=== PATIENT | male | born 1965 | race Caucasian/White ===

== ENCOUNTER 2017-01-15 09:29 | Emergency (ER) | payer OTHER ==
[~2017-01-15 09:29] MED LIST: NKHM
[2017-01-15] MEDS ORDERED: TOBREX OPHTH S2.5 ML OPH (09:42)
== END 2017-01-15 09:58 | disposition home or self-care (01) ==
LOC: ED 09:29
DX: S05.02XA Injury of conjunctiva and corneal abrasion without foreign body, left eye, initial encounter (principal); R03.0 Elevated blood-pressure reading, without diagnosis of hypertension; Z29.12 Encounter for prophylactic antivenin; F17.200 Nicotine dependence, unspecified, uncomplicated; X58.XXXA Exposure to other specified factors, initial encounter; Y93.89 Activity, other specified; Y92.69 Other specified industrial and construction area as the place of occurrence of the external cause; Y99.0 Civilian activity done for income or pay

== ENCOUNTER → 2023-11-04 | Outpatient (CLI) | payer OTHER ==
[~2023-11-04] MED LIST changes: +HYDROCHLOROTH12.5 M2 PO; +HYDROCODONE-AC1 EAC1 PO; +TOBREX OPHTH S2.5 ML OPH; +VENLAFAXINE H37.5 M5 PO; +VENLAFAXINE HYD75 M3 PO
[2023-11-04 17:58] LABS: BASO % 0.3 % (0.0-1.0); EOS % 0.7 % (1.0-4.0); LYMPH % 33.9 % (27.0-41.0); MEAN CELL VOLUME 96.4 fl (80.0-94.0); MEAN CORPUSCULAR HGB 31.7 pg (27.0-31.0); MEAN CORPUSCULAR HGB CONC 32.9 g/dl (33.0-37.0); MEAN PLATELET VOLUME 8.4 fl (9.6-12.3); MONO # 0.5 10*3/uL (0.1-1.0); MONO % 8.5 % (3.0-9.0); NEUT # 3.3 10*3/uL (2.3-7.9); NEUT % 55.9 % (47.0-73.0); PLATELET COUNT AUTOMATED 337 10*3/uL (130-400); RED BLOOD COUNT 4.98 10*6/uL (4.50-5.90); RED CELL DISTRI WIDTH 12.8 % (0-14.5)
[2023-11-04 18:28] LABS: ALKALINE PHOSPHATASE 87 U/L (46-116); BUN 7 mg/dl (9-23); CHLORIDE 106 mmol/L (98-107); POTASSIUM 4.3 mmol/L (3.4-5.1); SGPT/ALT 23 U/L (5-49); TOTAL PROTEIN 7.3 gm/dL (6.0-8.0)
== END | disposition home or self-care (01) ==
LOC: LAB 17:45
PROVIDERS: ATTEND Family Medicine
DX: S80.862A Insect bite (nonvenomous), left lower leg, initial encounter (principal); X58.XXXA Exposure to other specified factors, initial encounter; Y93.89 Activity, other specified; Y92.89 Other specified places as the place of occurrence of the external cause; Y99.8 Other external cause status

== ENCOUNTER 2025-02-12 11:41 | Emergency (ER) | payer SELFPAY ==
[~2025-02-12] VITALS: Ht 172.7 cm; Wt 49.9 kg
[2025-02-12] MEDS ORDERED: Dexamethasone Sodium Phospha 20 MG/5 ML VIAL IM ONE (12:00)
[2025-02-12] MEDS ORDERED: PREDNISONE20 M1 PO (12:05)
[2025-02-12] MEDS ORDERED: BENADRYL ALLERG25 M5 PO (12:05)
== END 2025-02-12 12:30 | disposition home or self-care (01) ==
LOC: ED 11:41
DX: T63.441A Toxic effect of venom of bees, accidental (unintentional), initial encounter (principal); R21 Rash and other nonspecific skin eruption; Z98.890 Other specified postprocedural states; Y92.89 Other specified places as the place of occurrence of the external cause